=== PATIENT | male | born 1990 | race African-American/Black ===

== ENCOUNTER 2021-06-19 10:23 | Emergency (ER) | payer SELFPAY | END 2021-06-19 10:52 | disposition left against medical advice (07) | LOC: EMS 10:27 | DX: Z11.52 Encounter for screening for COVID-19 (principal); Z53.21 Procedure and treatment not carried out due to patient leaving prior to being seen by health care provider ==

== ENCOUNTER 2021-06-19 15:14 | Emergency (ER) | payer OTHER ==
[~2021-06-19] VITALS: Ht 180.3 cm; Wt 86.4 kg
[2021-06-19 17:10] LABS: COVID AG,FIA SOURCE NASOPHARYNGEAL
[2021-06-19 19:02] VITALS: BP 138/78
== END 2021-06-20 00:20 | disposition home or self-care (01) ==
LOC: EMS 15:14
DX: Z20.822 Contact with and (suspected) exposure to COVID-19 (principal)
CPT/HCPCS: 87426; 99283; U0003